=== PATIENT | male | born 1985 | race Caucasian/White ===

== ENCOUNTER 2018-12-08 11:15 | Emergency (ER) | payer SELFPAY ==
[~2018-12-08] VITALS: Ht 172.7 cm; Wt 108.9 kg
[2018-12-08 11:20] VITALS: BP 141/89
--- NOTE | 2018-12-08 11:24 | NUR ---
PATIENT AMBULATED TO BED 7 AT THIS TIME.
--- NOTE | 2018-12-08 11:30 | NUR ---
32 Y MALE BIB SELF C/O CP OFF AND ON X 2 WEEKS. DESCRIBES CP TIGHTNESS. PAIN 5/10. RADIATING TO L ARM NUMBNESS. -N/V. GCS 15. DENIES BLURRY VISION. PT STATES HE HAS BEEN FEELING MORE ANXIOUS BECAUSE HE IS GETTING IN . [id number]. VSS AT THIS TIME. BED IS DOWN, LOCKED, BED RAIL X 1, ERMD TO SEE PT. HX-NONE MEDS-NONE NKA
--- NOTE | 2018-12-08 11:35 | NUR ---
DR JACOBS AT BEDSIDE
[2018-12-08] MEDS ORDERED: LORazepam 1 MG TAB PO ONE (11:40)
--- NOTE | 2018-12-08 11:46 | NUR ---
XRAY AT BEDSIDE
[2018-12-08 11:54] LABS: BASOPHILS % (AUTO) 0.3 % (0.0-2.0); EOSINOPHILS # (AUTO) 0.1 K/uL (0-0.4); EOSINOPHILS % (AUTO) 1.6 % (0.0-4.0); HEMATOCRIT 48.4 % (36-52); HEMOGLOBIN 16.8 g/dL (12.0-18.0); LYMPHOCYTES # (AUTO) 2.1 K/uL (2.0-11.5); LYMPHOCYTES % (AUTO) 26.9 % (20.5-51.1); MEAN CORPUSCULAR HEMOGLOBIN 31 pg (27-31); MEAN CORPUSCULAR HGB CONC 35 g/dL (33-37); MEAN CORPUSCULAR VOLUME 87.8 fL (80-94); MONOCYTES # (AUTO) 0.5 K/uL (0.8-1.0); MONOCYTES % (AUTO) 6.7 % (1.7-9.3); NEUTROPHILS % (AUTO) 64.5 % (42.2-75.2); PLATELET COUNT (AUTO) 292 K/uL (140-450); RED BLOOD CELL COUNT(AUTO) 5.51 MIL/uL (4.20-6.10); WHITE BLOOD COUNT (AUTO) 7.8 K/uL (4.8-10.8)
[2018-12-08 12:00] LABS: ANION GAP 12.3 (8-16); CARBON DIOXIDE 26.6 mmol/L (21-32); POTASSIUM 3.9 mmol/L (3.5-5.1)
[2018-12-08 12:06] LABS: TOTAL BILIRUBIN 0.5 mg/dL (0.0-1.0)
[2018-12-08 12:26] LABS: CREATINE KINASE MB 0.4 ng/mL (0-3.6)
[2018-12-08 13:00] VITALS: BP 113/63
== END 2018-12-08 13:00 | disposition home or self-care (01) ==
LOC: MED 11:15
DX: F41.9 Anxiety disorder, unspecified (principal)
CPT/HCPCS: 36415; 71045; 80053; 82550; 82553; 83690; 84484; 85025; 85379; 93005; 99284; Q0092